=== PATIENT | female | born 1995 | race Caucasian/White ===

== ENCOUNTER 2017-03-15 23:48 | Emergency (ER) | payer MEDICAID, OTHER ==
[~2017-03-15] VITALS: Ht 154.9 cm; Wt 64.0 kg
[2017-03-16 00:10] VITALS: Ht 154.9 cm; Wt 64.0 kg
[2017-03-16] MEDS ORDERED: AMOX1TAB10 PO (02:33)
--- NOTE | 2017-03-16 02:36 | ERD ---
ER Documentation Chief Complaint Date/Time DATE: 03/16/17 TIME: 02:35 Chief Complaint sore throat x 2 days, took PCN at home HPI This is a 21-with sore throat for 2 days. Patient says she is having difficulty swallowing. She is 6 weeks . No fevers no chills been no other current complaints. ROS All systems reviewed and are negative except as per history of present illness. Medications Home Meds Active Scripts Amoxicillin/Potassium Clav (Amox-Clav 875-125 mg Tablet) 875-125 mg Tab, 1 TAB PO BID for 7 Days, #14 TAB Prov:DWAYNE CHOE 03/16/17 Allergies Allergies: Coded Allergies: No Known Allergy (Unverified , 03/16/17) PMhx/Soc Medical and Surgical Hx: pt denies Medical Hx, pt denies Surgical Hx History of Surgery: No Anesthesia Reaction: No Hx Neurological Disorder: No Hx Respiratory Disorders: No Hx Cardiac Disorders: No Hx Psychiatric Problems: No Hx Miscellaneous Medical Probl: No Hx Alcohol Use: No Hx Substance Use: No Hx Tobacco Use: No Smoking Status: Never smoker Physical Exam Vitals Vital Signs Date Time Temp Pulse Resp B/P Pulse Ox O2 Delivery O2 Flow Rate FiO2 03/16/17 00:10 98.5 99 18 121/76 99 Physical Exam Const: [] Head: Atraumatic Eyes: Normal Conjunctiva ENT: Right peritonsillar exudate Neck: Full range of motion..~ No meningismus. Resp: Clear to auscultation bilaterally Cardio: Regular rate and rhythm, no murmurs Abd: Soft, non tender, non distended. Normal bowel sounds Skin: No petechiae or rashes Back: No midline or flank tenderness Ext: No cyanosis, or edema Neur: Awake and alert Psych: Normal Mood and Affect Procedures/MDM Medical decision-making: The patient comes in with exudative pharyngitis. Discharge home with Augmentin. Follow-up with PCP. Return for worsening symptoms. Departure Diagnosis: Primary Impression: Sore throat Condition: Stable Patient Instructions: Strep Throat DWAYNE CHOE Mar 16, 2017 02:35
== END 2017-03-16 03:29 | disposition home or self-care (01) ==
LOC: E/R 23:48 → FTE 03-16 03:29
DX: O99.511 Diseases of the respiratory system complicating pregnancy, first trimester (principal); J02.9 Acute pharyngitis, unspecified; Z3A.01 Less than 8 weeks gestation of pregnancy
CPT/HCPCS: 99283

== ENCOUNTER 2017-08-28 20:08 | Outpatient (CLI) | payer MEDICAID ==
[~2017-08-28] VITALS: Ht 157.5 cm; Wt 77.9 kg
[~2017-08-28 20:08] MED LIST: AMOX1TAB10 PO
[2017-08-28 20:12] VITALS: Ht 157.5 cm; Wt 77.9 kg
[2017-08-28 20:26] VITALS: BP 110/67; PULSE 114; RESP 16
[2017-08-28] MEDS ORDERED: FERR256T PO (20:29)
[2017-08-28] MEDS ORDERED: PREN-6 PO (20:29)
[2017-08-28] MEDS ORDERED: CALC600T5 PO (20:29)
--- NOTE | 2017-08-28 23:44 | PN ---
Triage Information Date/Time 08/28/1705/07/2340 Reason for visit: coughing for 1day mild no fever or myalgia Weeks of Gestation 28w2d /Para primigravida Diabetes: none Hypertention: none Additional information non productive had tdap 2days ago Objective Vital Signs Date Time Temp Pulse Resp B/P Pulse Ox O2 Delivery O2 Flow Rate FiO2 08/28/17 20:26 98.5 114 16 110/67 Room Air Heart Rate: 150's Contractions: None Disposition: Discharge Assessment/Plan iUP 28w2d mild coughing Plan discharge home with robittussin f/u at clinic JOSSUE MUSA MD Aug 28, 2017 23:44
--- NOTE | 2017-08-29 01:58 | TRIAGE ---
OB Triage Datetime Report Generated by CPN: 08/29/2017 01:58 Datetime: 08/28/2017 21:16 Stage of : OB Triage Labor Evaluation Frequency: X1 Monitor Mode: External Duration (sec)2399: 40 Quality: Mild Pattern: Normal: <= 5 Contractions in 10 Minutes Resting Tone [place]: Relaxed Heart Rate FHR Baseline Rate: 150 Monitor Mode: External US Variability: Moderate 6-25 bpm Accelerations: 15X15 Decelerations: None Category: Category I Pain Assessment Pain Scale: 5 Pain Presence: Intermittent Pain Type: Sharp; Ache Pain Location: Other (Annotations: THROAT AND CHEST WHEN COUGHS) Pain Goal: 3 Pain Relief Measures: Comfort Measures Datetime: 08/28/2017 20:31 Assessment Type: Triage Maternal Assessment Level of Consciousness: Fully Conscious DTR's/Clonus: DTRs 2+; No Clonus Headache: Denies Blurred Vision: No Respiratory Effort: Unlabored; Regular Rhythm; Equal Expansion (Annotations: OCCASSIONAL COUGH) Nausea/Vomiting: Denies RUQ Epigastric Pain: Denies Lower Extremities Edema: None Upper Extremities Edema: None Facial Edema: None Fall Risk Assessment History of Falling: (0) No Secondary Diagnosis: (0) No Ambulatory Aid: (0) Bedrest/Nurse Assist IV Therapy: (0) No Gait: (0) Normal/Bedrest/Immobile Mental Status: (0) Oriented to Own Ability Fall Score: 0 Fall Risk Score Definition: No Risk: No action required Datetime: 08/28/2017 20:29 Time of Arrival: 08/28/2017 20:00 EGA: 28.2 Arrived By: Wheelchair Arrived From: Home Chief Complaint: COUGH SINCE 08/27/17 HAD WHOOPING COUGH VACCINATION 08/26/17 Movement: Present Contractions: Denies/Absent Rupture of Membranes: Denies Vaginal Bleeding: None Vaginal Discharge: Denies Patient Complaints: None Time Provider Notified: 08/28/2017 20:48 Provider Notified: TRISTON Initial Plan: EFM, ASSESSMENT, CALL MD FOR ORDERS
== END 2017-08-28 21:25 | disposition home or self-care (01) ==
LOC: OBT 20:08 → L-D 20:11 → OBT 21:25
PROVIDERS: ATTEND Obstetrics & Gynecology
DX: O26.893 Other specified pregnancy related conditions, third trimester (principal); Z3A.28 28 weeks gestation of pregnancy; R05 Cough
CPT/HCPCS: G0463

== ENCOUNTER 2017-08-30 18:53 | Emergency (ER) | payer MEDICAID ==
[~2017-08-30] VITALS: Ht 157.5 cm; Wt 75.5 kg
[2017-08-30 18:53] VITALS: Ht 157.5 cm; Wt 75.5 kg
[~2017-08-30 18:53] MED LIST changes: -AMOX1TAB10 PO; +CALC600T5 PO; +FERR256T PO; +PREN-6 PO
[2017-08-30] MEDS ORDERED: ACETAMINOPHEN 500 MG TAB PO STA (20:10)
--- NOTE | 2017-08-30 20:46 | RADRPT ---
PROCEDURE: XR Chest. CLINICAL INDICATION: Shortness of breath. TECHNIQUE: AP Portable chest. COMPARISON: None FINDINGS: The cardiomediastinal silhouette is normal. The lung volumes are diminished with bibasilar atelecta sis versus infiltrates. The findings are more pronounced on the left than right. No pleural effusio n is evident. The osseous structures are unremarkable. IMPRESSION: Bibasilar atelectasis versus infiltrates, more pronounced on the left than right. RPTAT: HJAH .Ann Vargas MD, MD Date Time Electronically viewed and signed by .Ann Vargas MD, MD on 08/30/2017 20:45 .H/
[2017-08-30] MEDS ORDERED: AZITHROMYCIN 250 MG TAB PO STA (20:51)
[2017-08-30] MEDS ORDERED: AMOXICILLIN 500 MG CAP PO STA (20:51)
[2017-08-30] MEDS ORDERED: CEPHALEXIN 500 MG CAP PO STA (20:54)
[2017-08-30] MEDS ORDERED: ALBUTEROL 0.083% (NEB) 2.5 MG/3 ML AMP NEB STA (20:54)
--- NOTE | 2017-08-30 21:52 | RADRPT ---
PROCEDURE: US Lower extremity Venous. CLINICAL INDICATION: Pain TECHNIQUE: Multiple sonographic images of the bilateral lower extremity deep venous system was obt ained utilizing grayscale, color-flow, compressive sonography and doppler imaging with augmentation. The images were reviewed on a PACS workstation. COMPARISON: None. FINDINGS: There is normal compressibility and flow within bilateral common femoral, femoral, popliteal, mixing machine tender cork rod ior tibial and peroneal veins. IMPRESSION: No sonographic evidence for bilateral lower extremity deep venous thrombosis. RPTAT: HJES .Ezio Perales MD, MD Date Time Electronically viewed and signed by .Ezio Perales MD, MD on 08/30/2017 21:51 .S/
[2017-08-30 22:11] LABS: AADO2 Arterial 29.9 mmHg (7.0-24.0); Allen Test ACCEPTAB; Arterial Base Excess -1.3 mmol/L (-3.0-3); Arterial COHb 0.3 % (0.0-3.0); Arterial Fraction of Oxyhgb 95.3 % (93.0-99.0); Arterial HCO3 22.6 mmol/L (22.0-26.0); Arterial MetHb 0.1 % (0.0-1.5); Arterial Total Hemglobin 12.9 g/dl (12.0-18.0); MODE ROOM AIR
[2017-08-30 22:33] LABS: BASOPHILS % 0.3 % (0.0-2.0); EOSINOPHILS # 0.1 10^3/ul (0.0-0.5); EOSINOPHILS % 1.2 % (0.0-7.0); HEMATOCRIT 34.5 % (37.0-47.0); HEMOGLOBIN 11.7 g/dl (12.0-16.0); LYMPHOCYTES # 1.4 10^3/ul (0.8-2.9); MEAN CORPUSCULAR HEMOGLOBIN 30.1 pg (29.0-33.0); MEAN CORPUSCULAR HGB CONC 33.9 g/dl (32.0-37.0); MEAN CORPUSCULAR VOLUME 88.7 fl (82.0-101.0); MEAN PLATELET VOLUME 9.8 fl (7.4-10.4); MONOCYTE # 0.8 10^3/ul (0.3-0.9); MONOCYTES % 7.8 % (0.0-11.0); NEUTROPHIL # 7.5 10^3/ul (1.6-7.5); NEUTROPHILS % 75.9 % (39.0-77.0); PLATELET COUNT 228 10^3/UL (140-415); RED BLOOD COUNT 3.89 10^6/ul (4.20-5.40); RED CELL DISTRIBUTION WIDTH 13.1 % (11.5-14.5); WHITE BLOOD COUNT 9.8 10^3/ul (4.8-10.8)
[2017-08-30 23:13] LABS: ALANINE AMINOTRANSFERASE 32 IU/L (13-69); ALBUMIN 3.9 g/dl (3.3-4.9); ALBUMIN/GLOBULIN RATIO 1.05; ALKALINE PHOSPHATASE 112 IU/L (42-121); ANION GAP 16 (8-16); ASPARTATE AMINO TRANSFERASE 26 IU/L (15-46); BILIRUBIN,INDIRECT 0.3 mg/dl (0-1.1); BILIRUBIN,TOTAL 0.3 mg/dl (0.2-1.3); BLOOD UREA NITROGEN 8 mg/dl (7-20); CALCIUM 9.6 mg/dl (8.4-10.2); CARBON DIOXIDE 24 mmol/L (21-31); CHLORIDE 102 mmol/L (97-110); CREATININE 0.58 mg/dl (0.44-1.00); GLUCOSE 87 mg/dl (70-220); POTASSIUM 3.9 mmol/L (3.5-5.1); SODIUM 138 mmol/L (135-144); TOTAL PROTEIN 7.6 g/dl (6.1-8.1)
[2017-08-30 23:25] LABS: TROPONIN-I < 0.012 ng/ml (0.00-0.12)
[2017-08-30] MEDS ORDERED: AZIT250T94 PO (23:33)
[2017-08-30] MEDS ORDERED: ALBU2.5V3 NEB (23:33)
[2017-08-30] MEDS ORDERED: CEPH-443 PO (23:33)
--- NOTE | 2017-08-31 00:07 | ERD ---
ER Documentation Chief Complaint Chief Complaint chest congestion x 4days,28 wks cleared by Lucho [facility] no help HPI 21-year-old female who is 28 weeks presents with cough and shortness of breath for 4 days. Patient admits to chills. She states she did not take any medications today. She denies peripheral swelling. No history of blood clots ROS All systems reviewed and are negative except as per history of present illness. Medications Home Meds Active Scripts Albuterol Sulfate* (Albuterol Sulfate* Neb) 0.083%-3 Ml Neb, 2.5 MG NEB Q4 Y for SHORTNESS OF BREATH, #30 EA Prov:ALDAIR MERRILL PA-C 08/30/17 Azithromycin* (Zithromax*) 250 Mg Tablet, 250 MG PO DAILY for 4 Days, TAB Prov:ALDAIR MERRILL PA-C 08/30/17 Cephalexin* (Keflex*) 500 Mg Capsule, 500 MG PO QID for 10 Days, CAP Prov:ALDAIR MERRILL PA-C 08/30/17 Reported Medications Calcium Carbonate (CALCIUM) 600 Mg Tablet, 600 MG PO, TAB 08/28/17 Ferrous Gluconate (Iron) 256 Mg Tablet, 256 MG PO, TAB 08/28/17 Vits #93-Iron Fum-FA ( Formula) 1 Each Tablet, 1 TAB PO DAILY, TAB 08/28/17 Discontinued Scripts Amoxicillin/Potassium Clav (Amox-Clav 875-125 mg Tablet) 875-125 mg Tab, 1 TAB PO BID for 7 Days, #14 TAB Prov:DWAYNE CHOE 03/16/17 Allergies Allergies: Coded Allergies: No Known Allergy (Unverified , 08/28/17) PMhx/Soc History of Surgery: No Anesthesia Reaction: No Hx Neurological Disorder: No Hx Respiratory Disorders: No Hx Cardiac Disorders: No Hx Psychiatric Problems: No Hx Miscellaneous Medical Probl: No Hx Alcohol Use: No Hx Substance Use: No Hx Tobacco Use: No Smoking Status: Never smoker Physical Exam Vitals Vital Signs Date Time Temp Pulse Resp B/P Pulse Ox O2 Delivery O2 Flow Rate FiO2 08/30/17 21:50 117 20 98 21 08/30/17 20:32 98.4 124 18 124/70 96 Room Air 08/30/17 18:53 100.1 120 22 109/63 95 Physical Exam Const: WDWN Head: Atraumatic Eyes: Normal Conjunctiva ENT: Normal External Ears, Nose and Mouth. Neck: Full range of motion..~ No meningismus. Resp: Clear to auscultation bilaterally Cardio: Tachycardiac; regular rhythm, no murmurs Abd: Soft, non tender, non distended. Normal bowel sounds Skin: No petechiae or rashes Back: No midline or flank tenderness Ext: No cyanosis, or edema Neur: Awake and alert Psych: Normal Mood and Affect Result Diagram: 08/30/17214508/30/172145 Results 24 hrs Laboratory Tests Test 08/30/17 21:04 08/30/17 21:46 Blood Gas Specimen Source Blood arterial Arterial Blood Date Drawn 08/30/2017 9:50:49 PM Arterial Blood pH (Temp corrected) 7.427 Arterial Blood pCO2 (Temp correct) 35.0mmhg Arterial Blood pO2 (Temp corrected) 77.9mmHG Arterial Blood HCO3 22.6mmol/L Arterial Blood Base Excess -1.3mmol/L Arterial Blood Oxygen Saturation 95.7mmHG Macho Test ACCEPTAB Arterial Blood Gas Puncture Site Right Radial Arterial Blood Carboxyhemoglobin 0.3% Arterial Blood Methemoglobin 0.1% Blood Gas A-a O2 Differential 29.9mmHg Oxyhemoglobin Percent 95.3% Total Hemoglobin 12.9g/dl Blood Gas Temperature 37.0C Blood Gas Actual Respiration Rate 20 Blood Gas Modality ROOM AIR FiO2 21.0% Blood Gas Critical Value Read Back Marciano CALDERON Blood Gas Notified Whom BL Blood Gas Notified Time 08/30/2017 10:11:22 PM White Blood Count 9.810^3/ul Red Blood Count 3.8910^6/ul Hemoglobin 11.7g/dl Hematocrit 34.5% Mean Corpuscular Volume 88.7fl Mean Corpuscular Hemoglobin 30.1pg Mean Corpuscular Hemoglobin Concent 33.9g/dl Red Cell Distribution Width 13.1% Platelet Count 33768^3/UL Mean Platelet Volume 9.8fl Neutrophils % 75.9% Lymphocytes % 14.0% Monocytes % 7.8% Eosinophils % 1.2% Basophils % 0.3% Nucleated Red Blood Cells % 0.0/100WBC Neutrophils # 7.510^3/ul Lymphocytes # 1.410^3/ul Monocytes # 0.810^3/ul Eosinophils # 0.110^3/ul Basophils # 0.010^3/ul Nucleated Red Blood Cells # 0.010^3/ul Sodium Level 138mmol/L Potassium Level 3.9mmol/L Chloride Level 102mmol/L Carbon Dioxide Level 24mmol/L Anion Gap 16 Blood Urea Nitrogen 8mg/dl Creatinine 0.58mg/dl Glucose Level 87mg/dl Calcium Level 9.6mg/dl Total Bilirubin 0.3mg/dl Direct Bilirubin 0.00mg/dl Indirect Bilirubin 0.3mg/dl Aspartate Amino Transf (AST/SGOT) 26IU/L Alanine Aminotransferase (ALT/SGPT) 32IU/L Alkaline Phosphatase 112IU/L Troponin I < 0.012ng/ml Total Protein 7.6g/dl Albumin 3.9g/dl Globulin 3.70g/dl Albumin/Globulin Ratio 1.05 Current Medications Medications (Trade) Dose Ordered Sig/[place] Route PRN Reason Start Time Stop Time Status Last Admin Dose Admin Acetaminophen (Tylenol Tab) 1,000 mg ONCE STAT PO 08/30/17 20:10 08/30/17 20:11 DC 08/30/17 20:24 Amoxicillin (Amoxicillin) 500 mg ONCE STAT PO 08/30/17 20:51 08/30/17 20:55 DC Azithromycin (Zithromax) 500 mg ONCE STAT PO 08/30/17 20:51 08/30/17 20:52 DC 08/30/17 21:19 Cephalexin (Keflex) 500 mg ONCE STAT PO 08/30/17 20:54 08/30/17 20:55 DC 08/30/17 21:19 Albuterol (Proventil 0.083% (Neb)) 5 mg ONCE STAT NEB 08/30/17 20:54 08/30/17 20:55 DC 08/30/17 21:50 Procedures/MDM This is a 21-year-old female 28 weeks presenting to the ER with cough, sore throat and shortness of breath for four days. Patient likely has pneumonia, I have considered pulmonary embolism and my suspicion is low at this time. Patient presented tachycardia with low pulse ox of 95-96%, RT was consulted and she was given a breathing treatment with albuterol and her pulse ox elevated to 98%, patient continues to be tachycardiac which is a sign of pneumonia as well. CXR showed bibasilar atelectasis vs infiltrates, left greater than right. ABGs was done and within normal limits. Venous Doppler did not show any evidence of thrombosis. Patient was given prescription for Keflex and Azithromycin for pneumonia, first dose given in the ED. I have given her strict precautions to return to the emergency department for any worsening signs or symptoms, if not improving as expected. Patient appears well, she is saturating well on room air. There was no evidence of respiratory distress, stridor or use of accessory muscles. I have consulted my supervising physician who has also evaluated patient and helped advise my plan. CXR Bibasilar atelectasis versus infiltrates, more pronounced on the left than right. BL Low Ext Venous Doppler No sonographic evidence for bilateral lower extremity deep venous thrombosis. Departure Diagnosis: Primary Impression: Pneumonia Condition: Stable Patient Instructions: Pneumonia (Adult) Referrals: YOUR DOCTOR Additional Instructions: FOLLOW UP WITH YOUR PRIMARY CARE PHYSICIAN TOMORROW.Return to this facility if you are not improving as expected. Take all medicines as directed. Return to this facility if you are not improving as expected. ALDAIR MERRILL PA-C Aug 31, 2017 00:05
[2017-08-31 00:19] VITALS: BP 109/75; PULSE 111; RESP 18; TEMP 98.3
== END 2017-08-31 00:22 | disposition home or self-care (01) ==
LOC: FTE 18:53
DX: O99.511 Diseases of the respiratory system complicating pregnancy, first trimester (principal); J18.9 Pneumonia, unspecified organism; Z3A.28 28 weeks gestation of pregnancy
CPT/HCPCS: 36600; 71010; 80053; 82803; 84484; 85025; 93970; 94664; Z7502; Z7610

== ENCOUNTER 2017-11-20 10:05 | Inpatient (IN) | END 2017-11-23 13:25 | disposition home or self-care (01) | DRG 775 ==